=== PATIENT | male | born 2000 | race Hispanic/Latino ===

== ENCOUNTER 2021-12-22 21:10 | Emergency (ER) | payer SELFPAY ==
--- OUTSIDE RECORDS SUMMARY | 2021-12-22 21:13 | XMS REPORT | Continuity of Care Document ---
:2000 [facility] t Address [address] [place] [address] Care Team Providers Name Role Phone ANENE Primary Care Physician Unavailable SUSANA, A Attending Clinician Unavailable Doctor Unassigned, Name Attending Clinician Unavailable Payers Payer Name Policy Type Policy Number Effective Date Expiration Date S demond [facility] [id number] 2021 00:00:00 Problems Condition Condition Condition Status Onset Resolution Last Treating Co mments Source Name Details Category Date Date Treatment Clinician Date Autistic Autistic Disease Active Unive rs disorder disorder 6-03 ity of 00:00: [place] 00 Medical Branch Attention Attention Disease Active Uni vers deficit deficit 8-15 [place] disorder disorder Branch (ADHD), (ADHD), combined combined type type Depression Depression Disease Active U nivers 8-14 ity of 00:00: [place] 00 Medical Branch Anxiety Anxiety Disease Active Overview: Univ ers 8-14 Formattin ity of 00:00: g of this 00 note Medical might be Branch different from the original. Overview: Rule out Autism Spectrum Disorder; Social Anxiety Disorder Learning Learning Disease Active Unive rs disabiliti disabiliti 5-02 it y of es es 00:00: [place] 00 Medical [facility] Allergies, Adverse Reactions, Alerts Allergy Allergy Status Severity Reaction(s) Onset Inactive Treating Comm ents Source Name Type Date Date Clinician NO KNOWN Drug Active Univers ALLERGIE Class ity of [facility] [place] [facility] [place] Social History Social Habit Start Date Stop Date Quantity Comments Source Sex Assigned At 2000 2000 [facility] [place] 00:00:00 00:00:00 Medical Branch Smoking Status Start Date Stop Date Source Unknown if ever smoked [facility] [place] [facility] Medications Ordered Filled Start Stop Current Ordering Indication Dosage Frequency Signature Comments Components Source Medication Medication Date Date Medication? Clinician (SIG) Name Name francisco 2019-0 Yes [id number] 10mg Take 1 Univers m oxalate 2-05 tablet by ity o f 10 mg 00:00: mouth [place] tablet 00 daily. Medical Branch Immunizations Ordered Immunization Filled Immunization Date Status Commen ts Source Name Name Meningococcal 2017-11-02 Completed University of Polysaccharide 00:00:00 [place] [facility] (groups A, C, Y and Branc h W-135) conjugate vaccine (MCV4P) Influenza Virus 2017-09-27 Completed Universit y of Vaccine Quad IM 3+ 00:00:00 [facility] Influenza Virus 2016-10-25 Completed Universit y of Vaccine Quad IM 3+ 00:00:00 [facility] Branch HPV 2014-12-15 Completed University of 00:00:00 [facility] HPV 2014-02-25 Completed University of 00:00:00 [facility] HPV 2013-09-13 Completed University of 00:00:00 [facility] Influenza Virus 2013-09-13 Completed Universit y of Vaccine Quad Nasal 00:00:00 [facility] Meningococcal 2013-09-13 Completed University of Polysaccharide 00:00:00 [place] [facility] (groups A, C, Y and Branc h W-135) conjugate vaccine (MCV4P) TDAP 2013-09-13 Completed University of 00:00:00 [facility] Influenza Virus 2007-11-28 Completed Universit y of Vaccine Nasal 00:00:00 [place] [facility] Varicella 2007-11-28 Completed University of (varivax)(chicken 00:00:00 [place] [facility] pox) Branch DTAP 2004-12-01 Completed University of 00:00:00 [facility] IPV 2004-12-01 Completed University of 00:00:00 [facility] MMR 2004-12-01 Completed University of 00:00:00 [facility] HEPATITIS A 2003-10-14 Completed University of 00:00:00 [facility] HEPATITIS A 2002-10-30 Completed University of 00:00:00 [facility] Branch DTAP 2002-01-09 Completed University of 00:00:00 [facility] Pneumococcal 7 2002-01-09 Completed University of Conjugate, PCV7 00:00:00 [place] [facility] (Prevnar7) Branch Heamophilus Influenza 2001-10-24 Completed Uni versity of B 00:00:00 [facility] MMR 2001-10-24 Completed University of 00:00:00 [facility] Varicella 2001-10-24 Completed University of (varivax)(chicken 00:00:00 [facility] edical pox) Branch Hep B, Adol or Pedi 2001-06-26 Completed Unive rsity of Dosage 00:00:00 [facility] Heamophilus Influenza 2001-06-26 Completed Uni versity of B 00:00:00 [facility] DTAP 2001-05-01 Completed University of 00:00:00 [facility] IPV 2001-05-01 Completed University of 00:00:00 [facility] Pneumococcal 7 2001-05-01 Completed University of Conjugate, PCV7 00:00:00 [place] [facility] (Prevnar7) Branch DTAP 2001-01-29 Completed University of 00:00:00 [facility] Heamophilus Influenza 2001-01-29 Completed Uni versity of B 00:00:00 [facility] IPV 2001-01-29 Completed University of 00:00:00 [facility] Pneumococcal 7 2001-01-29 Completed University of Conjugate, PCV7 00:00:00 [place] [facility] (Prevnar7) Branch DTAP 2000 Completed University of 00:00:00 [facility] Hep B, Adol or Pedi 2000 Completed Unive rsity of Dosage 00:00:00 [facility] Heamophilus Influenza 2000 Completed Uni versity of B 00:00:00 [facility] IPV 2000 Completed University of 00:00:00 [facility] Pneumococcal 7 2000 Completed University of Conjugate, PCV7 00:00:00 [place] [facility] (Prevnar7) Branch Hep B, Adol or Pedi 2000 Completed Unive rsity of Dosage 00:00:00 [facility] Procedures Procedure Date / Time Performed Performing Clinician [facility] ASSIGNMENT OF BENEFITS 2021-12-10 15:25:56 Doctor Unassigned, No University [facility] Name Medical Branch Encounters Start End Encounter Admission Attending Care Care Encounter Source Date/Time Date/Time Type Type Clinicians Facility Department ID 2021-12-10 2021-12-10 Outpatient Tami [facility] [id number] Univers 09:30:00 09:30:00 CLAUS [id number] [facility] [place] 2021-12-10 2021-12-10 [facility] [id number] Univers 09:30:00 09:30:00 CLAUS delgado [facility] 2021-12-10 2021-12-[address] [facility] [address] [id number] Univers 08:00:00 08:00:00 CLAUS [facility] [place] 2021-12-10 2021-12-10 Orders Doctor RAJIV [id number] Univers 00:00:00 00:00:00 Only Unassigned, RIGO [id number] ity of [place] [facility] [id number] Sergio as [phone] [place] [id number] Branch Results This patient has no known results.
[2021-12-22 22:27] LABS: Urine Blood Trace-intact (Negative); Urine Glucose Negative (Negative); Urine Protein Trace (Negative); Urine Specific Gravity 1.025 (1.005-1.030)
[2021-12-22 22:41] LABS: Protime INR 1.06
[2021-12-22 22:44] LABS: Barbiturates NEGATIVE (NEGATIVE); Benzodiazepines NEGATIVE (NEGATIVE); Cocaine NEGATIVE (NEGATIVE); METHAMPHETAM NEGATIVE (NEGATIVE); Methadone NEGATIVE (NEGATIVE); Opiates NEGATIVE (NEGATIVE); Phencyclidine NEGATIVE (NEGATIVE); THC Cannibis NEGATIVE (NEGATIVE)
[2021-12-22 22:45] LABS: Hematocrit 44.3 % (39.6-49.0); Lymphocytes % 37.6 % (15.3-44.8); MPV 10.4 fL (7.6-11.3); RBC Red Blood Cell Count 4.97 M/uL (4.33-5.43)
[2021-12-22 22:59] LABS: ALT/SGPT 25 U/L (12-78); AST/SGOT 18 U/L (15-37); Albumin 4.7 g/dL (3.4-5.0); Alkaline Phosphatase 64 U/L (45-117); BUN Blood Urea Nitrogen 10 mg/dL (7-18); Bicarbonate 28 mmol/L (21-32); Bilirubin Direct 0.2 mg/dL (0-0.2); Bilirubin Total 0.5 mg/dL (0.2-1.0); Glucose Level 87 mg/dL (74-106); Potassium 3.9 mmol/L (3.5-5.1); Sodium Level 141 mmol/L (136-145)
--- NOTE | 2021-12-22 23:47 | ER ---
Nurse's Notes [facility] Name: Caren Valenzuela Age: 21 yrs Sex: Male : 2000 Arrival Date: 12/22/2021 Time: 21:12 Bed 13 Private MD: Diagnosis: Adjustment disorder with depressed mood Presentation: 12/22 21:32 Chief complaint: Patient states: Very stressed out from the past week, more mental ke1 breakdown than usual. Some harmful thoughts on 12/06/21 around 12 am. Coronavirus screen: Vaccine status: Patient reports being unvaccinated. Ebola Screen: No symptoms or risks identified at this time. Initial Sepsis Screen: Does the patient meet any 2 criteria? No. Patient's initial sepsis screen is negative. Does the patient have a suspected source of infection? No. Patient's initial sepsis screen is negative. Risk Assessment: Do you want to hurt yourself or someone else? Patient reports no desire to harm self or others. Onset of symptoms was December 22, 2021. 21:32 Method Of Arrival: Ambulatory ke 21:32 Acuity: LISY 2 ke1 Triage Assessment: 21:35 Neuro: Level of Consciousness is awake, alert, Oriented to person, place, time, ke1 situation. Respiratory: Airway is patent Respiratory effort is even, unlabored. 21:43 General: Appears in no apparent distress. malnourished, Behavior is calm, cooperative. ke1 Pain: Denies pain. Historical: - Allergies: 21:35 No Known Allergies; ke1 - PMHx: 21:35 depression; ke1 - Immunization history:: Flu vaccine is not up to date. It has been more than one year since last vaccine. - Social history:: Smoking status: Patient denies any tobacco usage or history of. Patient/guardian denies using alcohol, street drugs, IV drugs. Screenin:29 Abuse screen: Denies threats or abuse. Nutritional screening: No deficits noted. lr4 Tuberculosis screening: No symptoms or risk factors identified. Fall Risk None identified. Assessment: 22:30 General: Appears in no apparent distress. comfortable, Behavior is calm, cooperative. lr4 Pain: Denies pain. Neuro: No deficits noted. Cardiovascular: No deficits noted. Respiratory: No deficits noted. Musculoskeletal: No deficits noted. Psych: 22:31 [place] Suicide Severity Screening: In the past month, have you wished you were lr4 or wished you could go to sleep and not wake up? Patient responds "No." "In the past month, have you actually had any thoughts of killing yourself?" Patient responds "no." "In your lifetime, have you ever done anything, started to do anything, or prepared to do anything to end your life?" Patient responds "no.". Subjective: Patient's mood is calm Delusions are denied, Hallucinations are denied Having thoughts of denies si/hi/avh. Objective: Patient is cooperative, Speech is normal, Affect is appropriate. Interventions: Urine collected and sent for urine drug test. Patient reassessed during use of restraints. Patient is physically safe. Patient's cardiac status is stable. Patient's respirations are even and unlabored. Patient has good circulation in all extremities as indicated by capillary refill < 3 seconds. Patient's ROM assessed and is intact. Patient assessed for signs of distress. Patient remains reasonably comfortable at this time. Safety Checks: Door is open. Pt denies substance abuse. Commitment: pt reports not commitment in past. Vital Signs: 21:32 BP 114 / 69; Pulse 74; Resp 18; Temp 99; Pulse Ox 100% ; Weight 38.56 kg; Height 5 ft. ke1 8 in. (172.72 cm); Pain 0/10; 23:55 BP 101 / 72; Pulse 61; Resp 20; Pulse Ox 100% on R/A; lr4 21:32 Body Mass Index 12.92 (38.56 kg, 172.72 cm) ke1 ED Course: 21:12 Patient arrived in ED. jj6 21:27 Robert Fontanez MD is Attending Physician. kdr 21:35 Triage completed. ke1 21:41 Rosa Foote, TAMIKA is Primary Nurse. lr4 22:28 Inserted saline lock: 20 gauge in right forearm, using aseptic technique. Blood oe collected. 22:29 No provider procedures requiring assistance completed. Inserted saline lock:. lr4 22:29 Patient has correct armband on for positive identification. Bed in low position. Call lr4 light in reach. Side rails up X 1. Pulse ox on. NIBP on. Door closed. Noise minimized. 22:29 Arm band placed on right wrist. EKG completed in triage. Results shown to MD. lr4 23:11 [facility] spoke to Vaishnavi to have a screener evaluate the mw2 patient. 23:55 IV discontinued, intact, bleeding controlled, No redness/swelling at site. Pressure lr4 dressing applied. Administered Medications: No medications were administered Outcome: 22:29 Condition: stable lr4 23:46 Discharge ordered by . kdr 23:55 Discharged to home ambulatory. lr4 23:55 Discharge instructions given to patient. 23:55 Patient left the ED. lr4 Signatures: Robert Fontanez MD MD kdr [place]spin[place], [place] oe [place], MyKena mw2 Selene Darbyj6 Isidro Esquivel RN RN ke1 Rosa Foote RN RN lr4
--- NOTE | 2021-12-22 23:47 | EDPHYS ---
Physician Documentation [facility] Name: Caren Valenzuela Age: 21 yrs Sex: Male : 2000 Arrival Date: 12/22/2021 Time: 21:12 Bed 13 Private MD: ED Physician Robert Fontanez HPI: 12/23 00:37 This 21 yrs old Male presents to ER via Ambulatory with complaints of Altered kdr Mental Status. 00:37 The patient presents with Patient has been feeling depressed. Onset: The kdr symptoms/episode began/occurred at an unknown time. Possible causes: Patient has had a lot of stress going back and forth between his living with his mother and his father. Associated signs and symptoms: The patient has no apparent associated signs or symptoms. Current symptoms: In the emergency department the patient's symptoms have improved, markedly. Patient's baseline: Neuro: alert and fully oriented, Motor: no deficits, Ambulation: walks without assistance, Speech: normal for age. The patient has experienced similar episodes in the past, but today's symptoms are not as bad as this previous episode. Patient has not had any acute psychiatric intervention in several years but has an appointment in the next few weeks. Patient has a history of depression that has been waxing and waning lately with more severe episodes from time to time. Recently has had some thoughts of harming himself but without a specific plan. Currently the patient is not acutely suicidal and does not have any plan. Historical: - Allergies: 12/22 21:35 No Known Allergies; ke1 - PMHx: 21:35 depression; ke1 - Immunization history:: Flu vaccine is not up to date. It has been more than one year since last vaccine. - Social history:: Smoking status: Patient denies any tobacco usage or history of. Patient/guardian denies using alcohol, street drugs, IV drugs. ROS: 12/23 00:37 Constitutional: Negative for fever, chills, and weight loss, Eyes: Negative for injury, kdr pain, redness, and discharge, ENT: Negative for injury, pain, and discharge, Neck: Negative for injury, pain, and swelling, Cardiovascular: Negative for chest pain, palpitations, and edema, Respiratory: Negative for shortness of breath, cough, wheezing, and pleuritic chest pain, Abdomen/GI: Negative for abdominal pain, nausea, vomiting, diarrhea, and constipation, a change for the past few months Back: Negative for injury and pain, : Negative for injury, bleeding, discharge, and swelling, MS/Extremity: Negative for injury and deformity, Skin: Negative for injury, rash, and discoloration, Neuro: Negative for headache, weakness, numbness, tingling, and seizure activity. Allergy/Immunology: Negative for hives, rash, and allergies, Endocrine: Negative for neck swelling, polydipsia, polyuria, polyphagia, and marked weight changes, Hematologic/Lymphatic: Negative for swollen nodes, abnormal bleeding, and unusual bruising. Psych: Positive for depression, suicidal ideation. Exam: 12/22 22:40 ECG was reviewed by the Attending Physician. kdr 12/23 00:37 Constitutional: This is a well developed, well nourished patient who is awake, alert, kdr and in no acute distress. Patient is very frail and anorexic appearing. But he has no acute psychiatric condition at this time warranting further evaluation Head/Face: Normocephalic, atraumatic. Eyes: Pupils equal round and reactive to light, extra-ocular motions intact. Lids and lashes normal. Conjunctiva and sclera are non-icteric and not injected. Cornea within normal limits. Periorbital areas with no swelling, redness, or edema. Neck: Trachea midline, no thyromegaly or masses palpated, and no cervical lymphadenopathy. Supple, full range of motion without nuchal rigidity, or vertebral point tenderness. No Meningismus. Chest/axilla: Normal chest wall appearance and motion. Nontender with no deformity. No lesions are appreciated. Cardiovascular: Regular rate and rhythm with a normal S1 and S2. No gallops, murmurs, or rubs. Normal PMI, no JVD. No pulse deficits. Respiratory: Lungs have equal breath sounds bilaterally, clear to auscultation and percussion. No rales, rhonchi or wheezes noted. No increased work of breathing, no retractions or nasal flaring. Abdomen/GI: Soft, non-tender, with normal bowel sounds. No distension or tympany. No guarding or rebound. No evidence of tenderness throughout. Back: No spinal tenderness. No costovertebral tenderness. Full range of motion. Skin: Warm, dry with normal turgor. Normal color with no rashes, no lesions, and no evidence of cellulitis. MS/ Extremity: Pulses equal, no cyanosis. Neurovascular intact. Full, normal range of motion. Neuro: Awake and alert, GCS 15, oriented to person, place, time, and situation. Cranial nerves II-XII grossly intact. Motor strength 5/5 in all extremities. Sensory grossly intact. Cerebellar exam normal. Normal gait. Psych: Awake, alert, with orientation to person, place and time. Behavior, mood, and affect are within normal limits. Vital Signs: 12/22 21:32 BP 114 / 69; Pulse 74; Resp 18; Temp 99; Pulse Ox 100% ; Weight 38.56 kg; Height 5 ft. ke1 8 in. (172.72 cm); Pain 0/10; 23:55 BP 101 / 72; Pulse 61; Resp 20; Pulse Ox 100% on R/A; lr4 21:32 Body Mass Index 12.92 (38.56 kg, 172.72 cm) ke1 MDM: 23:46 Patient medically screened. kdr 12/23 00:37 Data reviewed: vital signs, nurses notes, lab test result(s). Counseling: I had a kdr detailed discussion with the patient and/or guardian regarding: the historical points, exam findings, and any diagnostic results supporting the discharge/admit diagnosis, lab results, the need for outpatient follow up. ED course: After discussion of the patient's condition and his current improvement in his mental status the patient was agreeable to discharge with follow-up as scheduled patient had no acute plans for self-harm or harming others. He was alert and stable and happy with the care provided the plan for discharge and follow-up. 12/22 21:42 Order name: Acetaminophen; Complete Time: 23:39 mw2 12/22 21:42 Order name: Basic Metabolic Panel; Complete Time: 23:39 mw2 12/22 21:42 Order name: CBC with Diff; Complete Time: 23:39 mw2 12/22 21:42 Order name: ETOH Level; Complete Time: 23:39 mw2 12/22 21:42 Order name: Hepatic Function; Complete Time: 23:39 mw2 12/22 21:42 Order name: PT-INR; Complete Time: 23:39 mw2 12/22 21:42 Order name: Ptt, Activated; Complete Time: 23:39 mw2 12/22 21:42 Order name: Salicylate; Complete Time: 23:39 mw2 12/22 21:42 Order name: Urine Drug Screen; Complete Time: 23:39 mw2 12/22 21:42 Order name: EKG; Complete Time: 21:43 mw2 12/22 21:42 Order name: EKG - Nurse/Tech; Complete Time: 22:28 mw2 12/22 21:42 Order name: IV Saline Lock; Complete Time: 22:28 mw2 12/22 21:42 Order name: COVID-19 SARS RT PCR (Document "Date of Onset" if Symptomatic); Complete mw2 Time: 23:39 12/22 22:26 Order name: Urine Dipstick-Ancillary; Complete Time: 23:39 EDMS 12/22 21:42 Order name: Labs collected and sent; Complete Time: 22:28 mw2 12/22 21:42 Order name: Suicide Screening ([place]); Complete Time: 22:28 mw2 12/22 21:42 Order name: Urine Dipstick-Ancillary (obtain specimen); Complete Time: 22:28 mw2 EC/16 22:40 Rate is 60 beats/min. Rhythm is regular, Sinus Rhythm with No ectopy. QRS [place] is kdr Normal. MI interval is normal. QRS interval is normal. QT interval is normal. Clinical impression: NSR w/ Non-specific ST/T Changes. Administered Medications: No medications were administered Disposition Summary: 12/22/21 23:46 Discharge Ordered Location: Home kdr Problem: new kdr Symptoms: have improved kdr Condition: Stable kdr Diagnosis - Adjustment disorder with depressed mood kdr Followup: kdr - With: Private Physician - When: 2 - 3 days - Reason: If symptoms return, Further diagnostic work-up, Recheck today's complaints, Continuance of care, Re-evaluation by your physician Discharge Instructions: - Discharge Summary Sheet kdr - Adjustment Disorder, Adult kdr Forms: - Medication Reconciliation Form kdr - Thank You Letter kdr Signatures: Dispatcher [employer] Robert Holley MD MD kdr Subhash Villarreal mw2 Isidro Esquivel RN RN ke1
[2021-12-23 00:24] VITALS: TEMP 99; O2SAT 100
[2021-12-23 00:25] VITALS: BP 101/72
--- NOTE | 2021-12-27 08:33 | EKG ---
Test Date: 2021-12-22 Test Time: 22:12:55 Photo Mask Processor: REMIGIO MEASUREMENT RESULTS: Intervals: Rate: 67 [place]: 108 QRSD: 84 QT: 372 QTc: 393 [place]: P: 62 [place]: 108 QRS: 91 T: 71 INTERPRETIVE STATEMENTS: Sinus rhythm with sinus arrhythmia with short [place] Rightward axis ST elevation, probably due to early repolarization Borderline ECG No previous ECG available for comparison Electronically Signed On 12-27-21 08:24:08 CDT by Andrew Garcia
--- NOTE | 2021-12-27 08:33 | EKG ---
Test Date: 2021-12-22 Test Time: 22:13:34 [place] Molder: REMIGIO MEASUREMENT RESULTS: Intervals: Rate: 60 [place]: 120 QRSD: 86 QT: 382 QTc: 382 [place]: P: 50 [place]: 120 QRS: 89 T: 68 INTERPRETIVE STATEMENTS: Normal sinus rhythm Early repolarization Normal ECG Compared to ECG 12/22/2021 22:12:55 Sinus arrhythmia no longer present Short [place] interval no longer present Right-axis deviation no longer present ST (T wave) deviation no longer present Electronically Signed On 12-27-21 08:24:07 CDT by Andrew Garcia
== END 2021-12-22 23:55 | disposition home or self-care (01) ==
LOC: ER 21:10
DX: R41.82 Altered mental status, unspecified (principal); F32.A Depression, unspecified; F43.21 Adjustment disorder with depressed mood
CPT/HCPCS: 36415; 80048; 80076; 80307; 80320; 80329; 81003; 85025; 85610; 85730; 93005; 99284; U0003

== ENCOUNTER 2022-01-22 19:08 | Emergency (ER) | payer OTHER, SELFPAY ==
--- OUTSIDE RECORDS SUMMARY | 2022-01-22 19:12 | XMS REPORT | Continuity of Care Document ---
:2000 Author Organization [facility] t Address [address] [place] [address] Care Team Providers Name Role Phone LIZZETH Primary Care Physician Unavailable YEISON, Jovanni Attending Clinician Unavailable Jovanni Jerome Attending Clinician Payers Payer Name Policy Type Policy Number Effective Date Expiration Date S demond [facility] [id number] 2021 00:00:00 Problems Condition Condition Condition Status [...] Formattin ity of 00:00: g of this [place] 00 note Medical might be Branch different from the original. Overview: Rule out Autism Spectrum Disorder; Social Anxiety Disorder Learning Learning Disease Active Unive rs disabiliti disabiliti 5-02 it y of es es 00:00: [place] 00 Medical Branch Allergies, Adverse Reactions, Alerts Allergy Allergy Status Severity Reaction(s) Onset Inactive Treating Comm ents Source Name Type Date Date Clinician NO KNOWN Drug Active Univers ALLERGIE Class ity of S [facility] Social History Social Habit Start Date Stop Date Quantity Comments Source Exposure to Not sure [facility] SARS-CoV-2 [facility] (event) Branch Alcohol intake 2021-12-15 2021-12-15 Lifetime University of 00:00:00 00:00:00 non-drinker [facility] (finding) Branch Tobacco use and 2021-12-10 2021-12-10 Never used Universit y of exposure 00:00:00 00:00:00 [facility] Sex Assigned At [birth year] Universit y of 00:00:00 00:00:00 [facility] Smoking Status Start Date Stop Date Source Never smoker [facility] Medications Ordered Filled Start Stop Current Ordering Indication Dosage Frequency Signature Comments Components Source Medication Medication Date Date Medication? Clinician (SIG) Name Name escitalopra 2018- Yes [id number] 10mg Take 1 Univers m oxalate 205 tablet by ity o f 10 mg 00:00: mouth [place] tablet 00 daily. [facility] Branch Immunizations Ordered Immunization Filled Immunization Date Status Commen ts Source Name Name Meningococcal 2017-11-02 Completed University of Polysaccharide 00:00:00 [place] Medi magy (groups A, C, Y and Branc h W-135) conjugate vaccine (MCV4P) Influenza Virus 2017-09-27 Completed Universit y of Vaccine Quad IM 3+ 00:00:00 [facility] YRS [place] Influenza Virus 2016-10-25 Completed Universit y of Vaccine Quad IM 3+ 00:00:00 [facility] Branch HPV 2014-12-15 Completed University of 00:00:00 [facility] HPV 2014-02-25 Completed University of 00:00:00 [facility] HPV 2013-09-13 Completed University of 00:00:00 [facility] Influenza Virus 2013-09-13 Completed Universit y of Vaccine Quad Nasal 00:00:00 [facility] Meningococcal 2013-09-13 Completed University of Polysaccharide 00:00:00 [place] Medi magy (groups A, C, Y and Branc h W-135) conjugate vaccine (MCV4P) TDAP 2013-09-13 Completed University of 00:00:00 [facility] Influenza Virus 2007-11-28 Completed Universit y of Vaccine Nasal 00:00:00 [place] [facility] Varicella 2007-11-28 Completed University of (varivax)(chicken 00:00:00 [facility] edical pox) Branch DTAP 2004-12-01 Completed University of 00:00:00 [facility] IPV 2004-12-01 Completed University of 00:00:00 [facility] MMR 2004-12-01 Completed University of 00:00:00 [facility] HEPATITIS A 2003-10-14 Completed University of 00:00:00 [facility] HEPATITIS A 2002-10-30 Completed University of 00:00:00 [facility] DTAP 2002-01-09 Completed University of 00:00:00 [facility] Pneumococcal 7 2002-01-09 Completed University of Conjugate, PCV7 00:00:00 [place] Med ical (Prevnar7) Branch Heamophilus Influenza 2001-10-24 Completed Uni versity of B 00:00:00 [facility] MMR 2001-10-24 Completed University of 00:00:00 [facility] Varicella 2001-10-24 Completed University of (varivax)(chicken 00:00:00 [facility] edical pox) Branch Hep B, Adol or Pedi 2001-06-26 Completed Unive rsity of Dosage 00:00:00 [facility] Heamophilus Influenza 2001-06-26 Completed Uni versity of B 00:00:00 [facility] DTAP 2001-05-01 Completed University of 00:00:00 [facility] IPV 2001-05-01 Completed University of 00:00:00 [facility] Pneumococcal 7 2001-05-01 Completed University of Conjugate, PCV7 00:00:00 [place] [facility] ical (Prevnar7) Branch DTAP 2001-01-29 Completed University of 00:00:00 [facility] Heamophilus Influenza 2001-01-29 Completed Uni versity of B 00:00:00 [facility] IPV 2001-01-29 Completed University of 00:00:00 [facility] Branch Pneumococcal 7 2001-01-29 Completed University of Conjugate, PCV7 00:00:00 [place] Med ical (Prevnar7) Branch DTAP 2000 Completed University of 00:00:00 [facility] Hep B, Adol or Pedi 2000 Completed Unive rsity of Dosage 00:00:00 [facility] Heamophilus Influenza 2000 Completed Uni versity of B 00:00:00 [facility] IPV 2000 Completed University of 00:00:00 [facility] Branch Pneumococcal 7 2000 Completed University of Conjugate, PCV7 00:00:00 [place] Med ical (Prevnar7) Branch Hep B, Adol or Pedi 2000 Completed Unive rsity of Dosage 00:00:00 [facility] Vital Signs Vital Name Observation Time Observation Value Comments Source Systolic blood 2021-12-10 15:34:00 116 mm[Hg] Univer sity of pressure [facility] Diastolic blood 2021-12-10 15:34:00 76 mm[Hg] Unive rsity of pressure [facility] Heart rate 2021-12-10 15:34:00 77 /min [facility] ty [facility] Body temperature 2021-12-10 15:34:00 36.78 Rachel Univ ersity of [facility] Body height 2021-12-10 15:34:00 172.7 cm [facility] Body weight 2021-12-10 15:34:00 38.646 kg [facility] BMI 2021-12-10 15:34:00 12.95 kg/m2 [facility] Oxygen saturation in 2021-12-10 15:34:00 97 /min [facility] Arterial blood by [facility] Pulse oximetry Branch Procedures This patient has no known procedures. Encounters Start End Encounter Admission Attending Care Care Encounter Source Date/Time Date/Time Type Type Clinicians Facility Department ID 2021-12-10 2021-12-10 Outpatient R YEISON [facility] [id number] 854 [facility] 09:30:00 11:08:27 CLAUS delgado [facility] 2021-12-10 2021-12-10 Office Yeison [facility] [id number] Univers 09:30:00 11:08:27 Visit [employer] [id number] i ty of [place] [id number] Sergio as NANY?BLEA [id number] Oh dical LATESHA [address] [place] [address] MEDICAL OFFICE BUILDING Results This patient has no known results.
--- NOTE | 2022-01-22 19:42 | ER ---
Nurse's Notes [facility] Name: Caren Valenzuela Age: 21 yrs Sex: Male : 2000 Arrival Date: 01/22/2022 Time: 19:12 Bed 19 Private MD: Diagnosis: Suicidal ideations Presentation: 01/22 19:28 Chief complaint: Patient states: I have been dealing with emotional issues since middle [employer] school and I am not very good at expressing my emotions, I just kind of always bottled them up. It recently happened again. I am coming in tonight because I tried to hurt myself. I was on the second floor with an extension cord in hand with the intent to hang myself from the balcony. Coronavirus screen: At this time, the client does not indicate any symptoms associated with coronavirus-19. Ebola Screen: No symptoms or risks identified at this time. Initial Sepsis Screen: Does the patient meet any 2 criteria? No. Patient's initial sepsis screen is negative. Does the patient have a suspected source of infection? No. Patient's initial sepsis screen is negative. Risk Assessment: Do you want to hurt yourself or someone else? Patient reports desire/thoughts of hurting themselves or someone else. Provider notified. Onset of symptoms was January 22, 2022. Transition of care: patient was not received from another setting of care. 19:28 Acuity: LISY 2 jb4 19:28 Method Of Arrival: Ambulatory jb4 Triage Assessment: 20:37 General: Appears in no apparent distress. Behavior is calm, cooperative. michael Historical: - Allergies: 19:31 No Known Allergies; jb4 - Home Meds: 19:31 None [Active]; jb4 - PMHx: 19:31 Depression; jb4 - PSHx: 19:31 None; jb4 - Immunization history:: Adult Immunizations. - Family history:: not pertinent. - Social history:: Smoking status: Patient denies any tobacco usage or history of. - Hospitalizations: : No recent hospitalization is reported. Screenin:36 Abuse screen: Denies threats or abuse. Denies injuries from another. Nutritional michael screening: No deficits noted. Tuberculosis screening: No symptoms or risk factors identified. Fall Risk None identified. Assessment: 19:57 Reassessment: I recv'd the pt to room 19 \\T\\ 1945. Per report from reconditioner he is michael voluntary SI. The charge nurse is aware and has asked for a sitter for the pt. The pt's mother is at bedside and she is taking all his personal belongings home. Nothing will be sent to security. 20:29 Reassessment: Patient appears in no apparent distress at this time. The pt is very michael pleasant and cooperative. His mother is remaining at bedside, as there will be no sitter. The pt stated that he was "okay" with her staying and I told him, that if he changed his mind, to ask me "Is it raining outside." This would be our "code" for her needing to leave. Pain: Denies pain. 21:14 Reassessment: I have asked the pt for an urine specimen. A urinal was placed at bedside.michael 01/23 00:00 Reassessment: Spoke with Adrian at [facility], RN. ll3 00:48 Reassessment: Spoke with TAMIKA Goyal at [facility], sent lab results as ll3 requested. Psych: 01/22 20:37 [place] Suicide Severity Screening: In the past month, have you wished you were michael or wished you could go to sleep and not wake up? Patient responds "No." "In the past month, have you actually had any thoughts of killing yourself?" Patient responds "yes." Based off the client's response additional [place] suicide severity screening questions to be further documented on paper forms. "In your lifetime, have you ever done anything, started to do anything, or prepared to do anything to end your life?" Patient responds "no.". Subjective: Patient's mood is sad, Delusions are denied, Hallucinations are denied Having thoughts of suicide. Plan for suicide is Plans to use a knife, as he attempted before. Objective: Patient is cooperative, Speech is normal, Affect is appropriate. Interventions: Removed personal items and placed in bag. Patient placed in hospital gown. The pt's mother remains at bedside and has gathered his belongings, to take home, later. Safety Checks: Visitors are present. Pt denies substance abuse. Commitment: Patient will be a voluntary commitment. Vital Signs: 19:28 Pulse 94; Resp 16; Temp 99.4(TE); Pulse Ox 98% on R/A; Weight 36.29 kg (R); Height 5 jb4 ft. 8 in. (172.72 cm); Pain 0/10; 19:55 BP 128 / 87; ds4 20:29 BP 121 / 81; Pulse 72; Resp 18; Temp 98.2; Pulse Ox 100% on R/A; Pain 0/10; michael 01/23 02:06 BP 116 / 76; Pulse 68; Resp 14; Temp 98.2; Pulse Ox 98% ; ds4 01/22 19:28 Body Mass Index 12.16 (36.29 kg, 172.72 cm) jb4 ED Course: 01/22 19:12 Patient arrived in ED. bp1 19:14 Blaze Ramirez MD is Attending Physician. rn 19:31 Triage completed. jb4 19:35 Arm band placed on right wrist. jb4 19:56 Apryl Bowers, RN is Primary Nurse. michael 20:36 Placed in gown. Bed in low position. Adult w/ patient. michael 20:36 No provider procedures requiring assistance completed. michael 21:13 COVID-19/FLU A+B (Document "Date of Onset" if Symptomatic) Sent. michael 21:13 Acetaminophen Sent. michael 21:13 Basic Metabolic Panel Sent. michael 21:13 CBC with Diff Sent. michael 21:13 ETOH Level Sent. michael 21:13 Hepatic Function Sent. michael 21:14 PT-INR Sent. michael 21:14 Ptt, Activated Sent. michael 21:14 Salicylate Sent. michael 22:04 Urine Drug Screen Sent. michael 01/23 03:50 IV discontinued, intact, bleeding controlled, No redness/swelling at site. Pressure ll3 dressing applied. Administered Medications: No medications were administered Outcome: 01/22 19:42 ER care complete, transfer ordered by . rn 20:40 Condition: stable michael 01/23 03:50 Discharged to [facility] via EMS ll3 Condition: stable Discharge instructions given to patient, EMS, Instructed on the need for transfer, Demonstrated understanding of instructions. 03:52 Patient left the ED. tw5 Signatures: Blaze Ramirez MD MD rn Swanson, Donovan ds4 Elier Nunez RN RN jb4 Charity Gordillo bp1 Frandy Janette tw5 Kane Suarez RN RN ll3 O'Wiley, Apryl, RN RN michael
--- NOTE | 2022-01-22 19:43 | EDPHYS ---
Physician Documentation [facility] Name: Caren Valenzuela Age: 21 yrs Sex: Male : 2000 Arrival Date: 01/22/2022 Time: 19:12 Bed 19 Private MD: ED Physician Blaze Ramirez HPI: 01/22 19:36 This 21 yrs old Male presents to ER via Ambulatory with complaints of Anxiety, rn Suicidal Ideation. 19:36 The patient presents to the emergency department with suicide ideation. Onset: The rn symptoms/episode began/occurred today. Past psychiatric history: the patient has had a prior suicide gesture. Severity of symptoms: At their worst the symptoms were moderate in the emergency department the symptoms are unchanged. The patient has experienced a previous episode. The patient has not recently seen a physician. Pt reports suicidal ideations, went to second floor balcony and planned to hang himself with extension cord. Was talked out of it by his aunt, but does not feel safe going home. Used to be on antidepressants. Denies drugs or ETOH.. Historical: - Allergies: 19:31 No Known Allergies; jb4 - Home Meds: 19:31 None [Active]; jb4 - PMHx: 19:31 Depression; jb4 - PSHx: 19:31 None; jb4 - Immunization history:: Adult Immunizations. - Family history:: not pertinent. - Social history:: Smoking status: Patient denies any tobacco usage or history of. - Hospitalizations: : No recent hospitalization is reported. ROS: 19:36 Constitutional: Negative for fever, chills, and weight loss, Eyes: Negative for injury, rn pain, redness, and discharge, Neck: Negative for injury, pain, and swelling, Cardiovascular: Negative for chest pain, palpitations, and edema, Respiratory: Negative for shortness of breath, cough, wheezing, and pleuritic chest pain, Abdomen/GI: Negative for abdominal pain, nausea, vomiting, diarrhea, and constipation, Back: Negative for injury and pain, MS/Extremity: Negative for injury and deformity, Skin: Negative for injury, rash, and discoloration, Neuro: Negative for headache, weakness, numbness, tingling, and seizure, Psych: Negative for homicidal ideation, and hallucinations. Exam: 19:36 Constitutional: This is a well developed, well nourished patient who is awake, alert, rn and in no acute distress. Head/Face: Normocephalic, atraumatic. Eyes: Periorbital areas with no swelling, redness, or edema. Cardiovascular: Regular rate and rhythm. Respiratory: No increased work of breathing, no retractions or nasal flaring. Skin: Warm, dry MS/ Extremity: No cyanosis. Neuro: Awake and alert, GCS 15 Psych: Awake, alert, with orientation to person, place and time. Behavior, mood, and affect are within normal limits. Vital Signs: 19:28 Pulse 94; Resp 16; Temp 99.4(TE); Pulse Ox 98% on R/A; Weight 36.29 kg (R); Height 5 jb4 ft. 8 in. (172.72 cm); Pain 0/10; 19:55 BP 128 / 87; ds4 20:29 BP 121 / 81; Pulse 72; Resp 18; Temp 98.2; Pulse Ox 100% on R/A; Pain 0/10; michael 01/23 02:06 BP 116 / 76; Pulse 68; Resp 14; Temp 98.2; Pulse Ox 98% ; ds4 01/22 19:28 Body Mass Index 12.16 (36.29 kg, 172.72 cm) jb4 MDM: 01/22 19:14 Patient medically screened. rn 01/23 00:48 Differential diagnosis: depression, suicidal ideation. Data reviewed: vital signs, rn nurses notes, lab test result(s), EKG, and as a result, I will admit patient. Counseling: I had a detailed discussion with the patient and/or guardian regarding: the historical points, exam findings, and any diagnostic results supporting the discharge/admit diagnosis, lab results, the need to transfer to another facility. ED course: Accepted for transfer to [facility].. 01/22 19:40 Order name: Acetaminophen; Complete Time: 23:03 rn 01/22 19:40 Order name: Basic Metabolic Panel; Complete Time: 23:03 rn 01/22 19:40 Order name: CBC with Diff; Complete Time: 23:03 rn 01/22 19:40 Order name: ETOH Level; Complete Time: 23:03 rn 01/22 19:40 Order name: Hepatic Function; Complete Time: 23:03 rn 01/22 19:40 Order name: PT-INR; Complete Time: 23:03 rn 01/22 19:40 Order name: Ptt, Activated; Complete Time: 23:03 rn 01/22 19:40 Order name: Salicylate; Complete Time: 23:03 rn 01/22 19:40 Order name: Urine Drug Screen; Complete Time: 23:03 rn 01/22 19:40 Order name: EKG; Complete Time: 19:40 rn 01/22 19:40 Order name: EKG - Nurse/Tech; Complete Time: 21:13 rn 01/22 19:40 Order name: IV Saline Lock; Complete Time: 21: rn 01/22 19:41 Order name: COVID-19/FLU A+B (Document "Date of Onset" if Symptomatic); Complete Time: rn 23:01/22 22:04 Order name: Urine Dipstick-Ancillary; Complete Time: 23: [facility] 01/22 19:40 Order name: Labs collected and sent; Complete Time: 21: rn 01/22 19:40 Order name: Suicide Precautions; Complete Time: 21: rn 01/22 19:40 Order name: Suicide Screening ([place]); Complete Time: 21: rn 01/22 19:40 Order name: Urine Dipstick-Ancillary (obtain specimen); Complete Time: 22:04 rn Administered Medications: No medications were administered Disposition Summary: 01/22/22 19:42 Transfer Ordered Transfer Location: [facility] Facility rn Reason: Higher level of care rn Condition: Stable rn Problem: new rn Symptoms: have improved rn Accepting Physician: (01/23/22 03:52) tw5 Diagnosis - Suicidal ideations rn Forms: - Medication Reconciliation Form rn - SBAR form rn Signatures: Dispatcher [employer] Blaze Sanchez MD MD rn Bryson, James RN RN Janette Gooden tw5 Apryl Bowers RN TAMIKA rodriguez Corrections: (The following items were deleted from the chart) 03:52 01/22 19:42 rn tw5
[2022-01-22 21:13] LABS: Absolute Lymphocytes (CBC) 2.9 K/uL (0.7-4.9); Hematocrit 43.6 % (39.6-49.0); Lymphocytes % 30.7 % (15.3-44.8); MPV 10.2 fL (7.6-11.3); RBC Red Blood Cell Count 4.83 M/uL (4.33-5.43)
[2022-01-22 21:15] LABS: Protime INR 1.04
[2022-01-22 21:29] LABS: ALT/SGPT 24 U/L (12-78); AST/SGOT 14 U/L (15-37); Albumin 4.2 g/dL (3.4-5.0); Alkaline Phosphatase 53 U/L (45-117); BUN Blood Urea Nitrogen 10 mg/dL (7-18); Bicarbonate 28 mmol/L (21-32); Bilirubin Direct 0.1 mg/dL (0-0.2); Bilirubin Total 0.4 mg/dL (0.2-1.0); Glucose Level 84 mg/dL (74-106); Potassium 3.7 mmol/L (3.5-5.1); Protein, Total 7.4 g/dL (6.4-8.2); Sodium Level 142 mmol/L (136-145)
[2022-01-22 21:40] LABS: SARS-COV-2 RT PCR NEGATIVE (NEGATIVE)
[2022-01-22 22:04] LABS: Urine Blood Trace-intact (Negative); Urine Glucose Negative (Negative); Urine Protein Negative (Negative); Urine Specific Gravity >=1.030 (1.005-1.030)
[2022-01-22 22:18] LABS: Barbiturates NEGATIVE (NEGATIVE); Benzodiazepines NEGATIVE (NEGATIVE); Cocaine NEGATIVE (NEGATIVE); METHAMPHETAM NEGATIVE (NEGATIVE); Methadone NEGATIVE (NEGATIVE); Opiates NEGATIVE (NEGATIVE); Phencyclidine NEGATIVE (NEGATIVE); THC Cannibis NEGATIVE (NEGATIVE)
[2022-01-23 04:00] VITALS: TEMP 98.2
[2022-01-23 04:02] VITALS: BP 116/76; O2SAT 98
== END 2022-01-23 03:52 ==
LOC: ER 19:08
DX: R45.851 Suicidal ideations (principal); F32.A Depression, unspecified; Z20.822 Contact with and (suspected) exposure to COVID-19
CPT/HCPCS: 93005; 85025; 80048; 36415; 80320; 80329 ×2; 85610; 80076; 85730; 81003; 0240U; 80307; 99284